=== PATIENT | female | born 1995 | race Caucasian/White ===

== ENCOUNTER 2024-01-19 11:53 | Emergency (ER) | payer OTHER ==
[~2024-01-19] VITALS: Ht 160 cm; Wt 58.4 kg
[~2024-01-19 11:53] MED LIST: GUAIFENESIN400 MG PO; NAPROSYN500 MG PO; PROVENTIL HFA6.7 GM INH
[2024-01-19] MEDS ORDERED: CITRANATAL B-C1 EAC1 PO (14:38)
[2024-01-19] MEDS ORDERED: hydrOXYzine pamoate 25 MG CAP PO ONE (15:30)
[2024-01-19] MEDS ORDERED: HYDROXYZINE HCL25 MG PO (15:32)
[2024-01-19] MEDS ORDERED: WELLBUTRIN SR150 MG PO (15:32)
[2024-01-19 15:47] VITALS: BP 112/71
== END 2024-01-19 15:50 | disposition home or self-care (01) ==
LOC: ED 11:53
DX: O99.341 Other mental disorders complicating pregnancy, first trimester (principal); F41.9 Anxiety disorder, unspecified; Z3A.01 Less than 8 weeks gestation of pregnancy; Z88.2 Allergy status to sulfonamides; Z88.8 Allergy status to other drugs, medicaments and biological substances
CPT/HCPCS: 99282; Q0177

== ENCOUNTER 2024-04-24 12:22 | Inpatient (IN) | payer OTHER ==
[~2024-04-24] VITALS: Ht 160 cm; Wt 63.5 kg
[~2024-04-24 12:22] MED LIST changes: +CITRANATAL B-C1 EAC1 PO; +HYDROXYZINE HCL25 MG PO; +WELLBUTRIN SR150 MG PO
[2024-05-09] MEDS ORDERED: MAGNESIUM HYDROXIDE/AL HYDROX 30 ML CUP PO PRN ×2 (06:00→15:15)
[2024-05-09] MEDS ORDERED: CALCIUM CARBONATE 500 MG CHEW PO PRN ×2 (06:00→15:15)
[2024-05-09] MEDS ORDERED: LACTATED RINGER'S 1,000 ML IV PRN (06:00)
[2024-05-09] MEDS ORDERED: OXYTOCIN/0.9 % SODIUM CHLORIDE 500 ML IV SCH ×2 (06:00→15:15)
[2024-05-09] MEDS ORDERED: LACTATED RINGER'S 1,000 ML IV SCH ×3 (06:00→15:15)
[2024-05-09 06:47] VITALS: BP 125/78
[2024-05-09 06:58] LABS: HEMATOCRIT 40.4 % (35.0-50.0); HEMOGLOBIN 14.3 g/dL (12.0-18.0); MCH 34.3 (27-36); MCHC 35.3 g/dl (30-36); RBC 4.17 M/ul (4.3-5.7); RDW 12.6 (10.5-15.0)
[2024-05-09 07:20] LABS: AMPHETAMINES, URINE NEGATIVE (NEGATIVE); BARBITURATES, URINE NEGATIVE (NEGATIVE); BENZODIAZEPINE, URINE NEGATIVE (NEGATIVE); BUPRENORPHINE, URINE NEGATIVE (NEGATIVE); CANNABINOID, URINE NEGATIVE (NEGATIVE); COCAINE, URINE NEGATIVE (NEGATIVE); ECSTASY, URINE POSITIVE (NEGATIVE); FENTANYL, URINE NEGATIVE (NEGATIVE); METHADONE, URINE NEGATIVE (NEGATIVE); OPIATES, URINE NEGATIVE (NEGATIVE); OXYCODONE, URINE NEGATIVE (NEGATIVE); PHENCYCLIDINE, URINE NEGATIVE (NEGATIVE)
[2024-05-09 07:44] LABS: ABO A; ANTIBODY SCREEN NEGATIVE; RH POSITIVE
[2024-05-09] MEDS ORDERED: ePHEDrine sulfate 5 MG/ML SYRINGE IV PRN (08:45)
[2024-05-09] MEDS ORDERED: LACTATED RINGER'S 500 ML IV PRN (08:45)
[2024-05-09] MEDS ORDERED: ROPIVACAINE 0.2% 200 ML BAG EPIDURAL SCH (08:45)
[2024-05-09] MEDS ORDERED: LACTATED RINGER'S 2,000 ML IV ONE (08:45)
[2024-05-09] MEDS ORDERED: fentaNYL citrate 100 MCG/2 ML VIAL ONE (08:46)
[2024-05-09] MEDS ORDERED: ROPIVACAINE 0.2% 200 ML BAG ONE (08:46)
[2024-05-09] MEDS ORDERED: NIFEdipine 10 MG CAP PO ONE ×2 (09:30)
[2024-05-09 09:36] VITALS: BP 125/84
[2024-05-09 10:11] LABS: ALBUMIN 2.5 g/dL (3.4-5.0); ALBUMIN/GLOBULIN RATIO 0.66 (1.1-2.4); ANION GAP 13.8 (7-21); BILIRUBIN, TOTAL 0.3 mg/dL (0.2-1.0); BUN/CREATININE RATIO 13.41 (6.0-28.6); CALCIUM 8.7 mg/dL (8.5-10.1); CREATININE, SERUM 0.82 mg/dL (0.55-1.02); POTASSIUM 3.8 mmol/L (3.5-5.1); PROTEIN, TOTAL 6.3 g/dL (6.4-8.2)
[2024-05-09 10:14] LABS: CREATININE, RANDOM URINE 23.13 mg/dL (NOT ESTABLISHED); PROTEIN, RANDOM URINE <6 mg/dL (NOT ESTABLISHED)
[2024-05-09] MEDS ORDERED: MAGNESIUM SULFATE 500 ML IV SCH ×2 (10:15→15:15)
[2024-05-09] MEDS ORDERED: CALCIUM GLUCONATE 1,000 MG/10 ML VIAL IV PRN ×2 (10:15→15:15)
[2024-05-09] MEDS ORDERED: IBLOOD GLUCOSE TEST STRIP 1 EA TEST VI SCH (10:30)
[2024-05-09] MEDS ORDERED: MAGNESIUM HYDROXIDE 30 ML UDC PO PRN (15:15)
[2024-05-09] MEDS ORDERED: BENZOCAINE 60 ML AEROSOL TOP PRN (15:15)
[2024-05-09] MEDS ORDERED: HYDROCORTISONE ACETATE 25 MG SUPP PR PRN (15:15)
[2024-05-09] MEDS ORDERED: WITCH HAZEL/GLYCERIN 1 EA PAD TOP PRN (15:15)
[2024-05-09] MEDS ORDERED: ondansetron HCL 4 MG/2 ML VIAL IV PRN (15:30)
[2024-05-09] MEDS ORDERED: ARIPIPRAZOLE15 MG PO (15:35)
[2024-05-09] MEDS ORDERED: IBUPROFEN 600 MG TAB PO SCH (20:00)
[2024-05-09] MEDS ORDERED: ACETAMINOPHEN 500 MG TAB PO SCH (20:00)
[2024-05-09] MEDS ORDERED: SENNOSIDES/DOCUSATE 1 EA TAB PO SCH (21:00)
[2024-05-09] MEDS ORDERED: ARIPiprazole 5 MG TAB PO SCH (21:00)
[2024-05-10] MEDS ORDERED: buPROPion HCL XL 300 MG TAB.XL.24H PO SCH (09:00)
== END 2024-05-11 12:10 | disposition home or self-care (01) | DRG 806 ==
LOC: FBCO 12:22 → EDSTATUS 05-01 11:06 → FBC 05-09 06:04
PROVIDERS: ADMIT Obstetrics & Gynecology; ATTEND Obstetrics & Gynecology
PROC: 10E0XZZ Delivery of Products of Conception, External Approach (ICD-10-PCS; principal; 2024-05-09)
PROC: 10907ZC Drainage of Amniotic Fluid, Therapeutic from Products of Conception, Via Natural or Artificial Opening (ICD-10-PCS; principal; 2024-05-09)
DX: O75.5 Delayed delivery after artificial rupture of membranes (principal); O98.52 Other viral diseases complicating childbirth; Z37.0 Single live birth; Z3A.39 39 weeks gestation of pregnancy; P03.82 Meconium passage during delivery; O76 Abnormality in fetal heart rate and rhythm complicating labor and delivery; B00.9 Herpesviral infection, unspecified; O99.344 Other mental disorders complicating childbirth; F41.9 Anxiety disorder, unspecified; F32.A Depression, unspecified; O24.429 Gestational diabetes mellitus in childbirth, unspecified control; Z79.899 Other long term (current) drug therapy; Z88.2 Allergy status to sulfonamides; Z88.8 Allergy status to other drugs, medicaments and biological substances
CPT/HCPCS: 01960; 36415; 80053; 80307; 82570; 84156; 84550; 85027; 86850; 86900; 86901; A9270; J3475; J7121

== ENCOUNTER 2024-06-23 17:00 | Emergency (ER) | payer OTHER ==
[~2024-06-23] VITALS: Ht 152.4 cm; Wt 57.9 kg
[~2024-06-23 17:00] MED LIST changes: +ARIPIPRAZOLE15 MG PO
[2024-06-23] MEDS ORDERED: BUPROPION XL300 MG PO (17:42)
[2024-06-23 18:00] LABS: BASOPHILS 0.2 % (0-2); EOSINOPHILS 2.5 % (0-6); HEMATOCRIT 38.7 % (35.0-50.0); HEMOGLOBIN 13.7 g/dL (12.0-18.0); LYMPHOCYTES 23.8 % (24-44); MCH 32.6 (27-36); MCHC 35.3 g/dl (30-36); MCV 92.6 fl (81-99); MONOCYTES 4.6 % (0-12); NEUTROPHILS 68.9 % (39-80); PLATELET COUNT 208 K/uL (140-440); RBC 4.18 M/ul (4.3-5.7); RDW 12.2 (10.5-15.0)
[2024-06-23 18:15] LABS: ALBUMIN 3.8 g/dL (3.4-5.0); ALBUMIN/GLOBULIN RATIO 1.23 (1.1-2.4); ANION GAP 9.5 (7-21); BILIRUBIN, TOTAL 0.4 mg/dL (0.2-1.0); BUN/CREATININE RATIO 12.87 (6.0-28.6); CALCIUM 8.9 mg/dL (8.5-10.1); CREATININE, SERUM 1.01 mg/dL (0.55-1.02); POTASSIUM 3.5 mmol/L (3.5-5.1); PROTEIN, TOTAL 6.9 g/dL (6.4-8.2)
[2024-06-23 18:35] VITALS: BP 120/84
--- NOTE | 2024-06-24 07:24 | EKG ---
[facility] [address] [facility] [place] [address] Signed Normal sinus rhythm with sinus arrhythmia Normal ECG No previous ECGs available Confirmed by Yocasta Clayton MD ([id number]) on 06/24/2024 7:24:41 AM Electronically Signed By: OYCASTA CLAYTON MD 06/24/24 0724 PATIENT NAME: RANJIT DICKEY Electrocardiogram DATE OF : [birth year] PHYSICIAN: YOCASTA CLAYTON MD REPORT #: [id number] REPORT IS CONFIDENTIAL AND NOT TO BE RELEASED WITHOUT AUTHORIZATION
== END 2024-06-23 18:35 | disposition home or self-care (01) ==
LOC: ED 17:00
PROVIDERS: Emergency Medicine
DX: R42 Dizziness and giddiness (principal); Z79.899 Other long term (current) drug therapy; Z88.2 Allergy status to sulfonamides; Z88.8 Allergy status to other drugs, medicaments and biological substances
CPT/HCPCS: 36415; 80053; 84703; 85025; 93005; 93010; 99284